=== PATIENT | male | born 1955 | race Caucasian/White ===

== ENCOUNTER 2017-09-17 12:24 | Emergency (ER) | payer BC, OTHER ==
[~2017-09-17] VITALS: Ht 190.5 cm; Wt 107.4 kg
[~2017-09-17 12:24] MED LIST: ALTACE; ATOR-26 PO; CLOP1TAB15; EFF50 PO; EZET10TA63; PRED50TA PO; TOPROL
[2017-09-17 12:27] VITALS: TEMP 36.7; Ht 190.5 cm; Wt 107.4 kg
--- NOTE | 2017-09-17 12:55 | EMERGENCY ROOM VISIT NOTE ---
History Report prepared by Bipin: Inge Sahu Under the Supervision of: Dr. Magdi Chanel M.D. First contact with patient: 12:35 Chief Complaint: DIZZY Stated Complaint: LIGHTHEADED, DIZZY, CLAMY HANDS Nursing Triage Summary: DIZZY ON OFF SINCE YESTERDAY. NO C/O PAIN History of Present Illness The patient is a 62 year old white male with a past medical history of diabetes type and heart disease who presents to the ED with a cc of dizziness beginning a couple of days [employer]. Negative chest pain, SOB, urinary symptoms, racing heart, or palpitations, recent antibiotic use. He states that a couple of nights ago, he got off of his sofa and thought he was going to fall because he was so lightheaded. He reports that yesterday his hands became clammy and cold. He states the last time he checked his sugar was in 2011, but he checked it yesterday and it was 71 which is abnormally low for him. The patient then had apple juice and peanut butter and a few minutes later, he was feeling better and his sugar was at 127. He takes baby aspirin regularly. Source of History: patient Onset: a couple of days [employer] Position: head, other (upper and lower extremities) Quality: other (dizziness) Timing: other (sudden) Associated Symptoms: No chest pain, No SOB, No urinary symptoms Review of Systems See HPI for pertinent positives and negatives. A total of ten systems were reviewed and were otherwise negative. Past Medical & Surgical Medical Problems: (1) Diabetes mellitus (2) Heart disease Family History Heart disease High blood pressure Social History Smoking Status: Never Smoker Smokeless Tobacco Use: Yes Alcohol Use: none Marital Status: Housing Status: lives with significant other Occupation Status: retired Current/Historical Medications Scheduled Aspirin (Aspirin Ec), 81 MG PO DAILY Atorvastatin (Lipitor), 80 MG PO DAILY Gabapentin (Neurontin), 300 MG PO HS Metformin Hcl (Glucophage), 1,000 MG PO BID Metoprolol Tartrate (Lopressor) (Lopressor), 25 MG PO BID Ramipril (Altace), 5 MG PO DAILY Allergies Coded Allergies: No Known Allergies (Unverified , 09/17/17) Physical Exam Vital Signs Date Time Temp Pulse Resp B/P (MAP) Pulse Ox O2 Delivery O2 Flow Rate FiO2 09/17/17 14:53 66 16 133/78 95 09/17/17 13:32 69 16 140/82 97 Room Air 09/17/17 13:25 97 Room Air 09/17/17 13:24 97 Room Air 09/17/17 13:22 69 18 140/82 97 72 154/88 79 160/89 09/17/17 13:06 75 09/17/17 12:27 36.7 84 18 102/63 93 Room Air Physical Exam GENERAL: Awake, alert, well-appearing, NAD. Bronzed appearance, wearing glasses. HENT: Normocephalic, atraumatic. EYES: Normal conjunctiva. Sclera non-icteric. PERRL. No anisocoria. NECK: Supple. No nuchal rigidity. FROM. No carotid bruits. RESPIRATORY: CTAB, no rhonchi, wheezing, crackles CARDIAC: RRR, no MRG ABDOMEN: Soft, NTND, BS+ MSK: No chest wall TTP, no LE edema NEURO: GCS 15, CN 2-12 intact, moves all 4s on command SKIN: No rash or jaundice noted. Medical Decision & Procedures Laboratory Results 09/17/17 13:15 Red Blood Count 5.68, Mean Corpuscular Volume 84.7, Mean Corpuscular Hemoglobin 29.9, Mean Corpuscular Hemoglobin Concent 35.3, Mean Platelet Volume 11.5, Neutrophils (%) (Auto) 69.7, Lymphocytes (%) (Auto) 21.1, Monocytes (%) (Auto) 6.7, Eosinophils (%) (Auto) 1.9, Basophils (%) (Auto) 0.2, Neutrophils # (Auto) 7.70, Lymphocytes # (Auto) 2.33, Monocytes # (Auto) 0.74, Eosinophils # (Auto) 0.21, Basophils # (Auto) 0.02 09/17/17 13:15 Test 09/17/17 13:15 09/17/17 13:25 White Blood Count 11.04 K/uL (4.8-10.8) Red Blood Count 5.68 M/uL (4.7-6.1) Hemoglobin 17.0 g/dL (14.0-18.0) Hematocrit 48.1 % (42-52) Mean Corpuscular Volume 84.7 fL (80-100) Mean Corpuscular Hemoglobin 29.9 pg (25-34) Mean Corpuscular Hemoglobin Concent 35.3 g/dl (32-36) Platelet Count 214 K/uL (130-400) Mean Platelet Volume 11.5 fL (7.4-10.4) Neutrophils (%) (Auto) 69.7 % Lymphocytes (%) (Auto) 21.1 % Monocytes (%) (Auto) 6.7 % Eosinophils (%) (Auto) 1.9 % Basophils (%) (Auto) 0.2 % Neutrophils # (Auto) 7.70 K/uL (1.4-6.5) Lymphocytes # (Auto) 2.33 K/uL (1.2-3.4) Monocytes # (Auto) 0.74 K/uL (0.11-0.59) Eosinophils # (Auto) 0.21 K/uL (0-0.5) Basophils # (Auto) 0.02 K/uL (0-0.2) RDW Standard Deviation 40.6 fL (36.4-46.3) RDW Coefficient of Variation 13.2 % (11.5-14.5) Immature Granulocyte % (Auto) 0.4 % Immature Granulocyte # (Auto) 0.04 K/uL (0.00-0.02) Anion Gap 9.0 mmol/L (3-11) Est Creatinine Clear Calc Drug Dose 82.1 ml/min Estimated GFR () 72.7 Estimated GFR (Non- 62.7 BUN/Creatinine Ratio 13.8 (10-20) Calcium Level 9.3 mg/dl (8.5-10.1) Magnesium Level 2.1 mg/dl (1.8-2.4) Total Bilirubin 0.7 mg/dl (0.2-1) Direct Bilirubin 0.2 mg/dl (0-0.2) Aspartate Amino Transf (AST/SGOT) 18 U/L (15-37) Alanine Aminotransferase (ALT/SGPT) 41 U/L (12-78) Alkaline Phosphatase 63 U/L (45-117) Total Protein 7.5 gm/dl (6.4-8.2) Albumin 3.8 gm/dl (3.4-5.0) Thyroid Stimulating Hormone (TSH) 1.880 uIu/ml (0.300-4.500) Urine Color YELLOW Urine Appearance CLEAR (CLEAR) Urine pH 5.0 (4.5-7.5) Urine Specific [place] 1.016 (1.000-1.030) Urine Protein NEG (NEG) Urine Glucose (UA) NEG (NEG) Urine Ketones NEG (NEG) Urine Occult Blood TRACE (NEG) Urine Nitrite NEG (NEG) Urine Bilirubin NEG (NEG) Urine Urobilinogen NEG (NEG) Urine Leukocyte Esterase NEG (NEG) Urine WBC (Auto) 1-5 /hpf (0-5) Urine RBC (Auto) 0-4 /hpf (0-4) Urine Hyaline Casts (Auto) 0 /lpf (0-5) Urine Epithelial Cells (Auto) 0-5 /lpf (0-5) Urine Bacteria (Auto) NEG (NEG) Laboratory results reviewed by me Medications Administered Medications (Trade) Dose Ordered Sig/Darion Route Start Time Stop Time Status Last Admin Dose Admin Sodium Chloride 500 ml @ 999 mls/hr Q31M STAT IV 09/17/17 12:57 09/17/17 13:27 DC 09/17/17 13:45 999 MLS/HR ECG Per My Interpretation Indication: other (dizziness) Rate (beats per minute): 69 Rhythm: normal sinus Findings: no ectopy, other (normal intervals, normal axis, no STS changes or TWI) ED Course 1246: The patient was evaluated in room B11. A complete history and physical exam was performed. 1408: I reevaluated the patient. Discussed results and discharge instructions: He verbalized understanding and agreement. The patient is ready for discharge. Medical Decision The patient is a 62 year old white male with a past medical history of diabetes type and heart disease who presents to the ED with a cc of dizziness beginning a couple of days [employer]. Negative chest pain, SOB, urinary symptoms, racing heart, or palpitations, recent antibiotic use. Nursing notes reviewed. Ancillary studies and prior records reviewed. Differential diagnosis: Etiologies such as metabolic, infection, hypo/hyperglycemia, electrolyte abnormalities, cardiac sources, intracerebral event, toxicologic, neurologic, as well as others were entertained. Patient was seen and evaluated the bedside. Patient does have a known history of diabetes on metformin and CAD status post stent on baby aspirin. The patient does state that he has had some lightheadedness. Patient does relate that they are positional nature. Patient also did note some clamminess to his hands. Patient denies any chest pain, shortness of breath, or focal neuro deficit. Patient also did note some episodes of near hypoglycemia as the patient had a blood sugar in the 70s. Patient did recheck it after eating and it was greater than 100. Patient has had no recent changes in medications. Patient does not use any sulfonylureas or insulin. Patient did have blood work completed, EKG, troponin, chest x-ray. Patient's EKG is nonischemic and with a negative troponin. Do not believe this is ACS. The patient had fairly normal blood work otherwise. Patient's blood sugars normal here today. The patient is feeling improved. I did discuss that the patient does not have any murmurs or any carotid bruits. We did discuss that this could be contributory with regard to some lightheadedness. Patient was also told that he needs to hydrate better with clear liquids. Patient was also told he needs to be more careful with positional changes. Patient was told to follow-up with his PCP. I did discuss the patient with the special education case manager in order to obtain the patient a cardiology follow-up as he has not been seen by instrument technician in over 5 years. Patient again has a nonfocal neurologic exam do not believe he needs a CT the brain. With his lack of chest pain or shortness of breath I do not believe this to be PE. Patient was given strict follow-up, discharge, and return precautions. All questions were answered. Patient was deemed suitable for outpatient follow-up at this time. Patient agreed with the plan of care and was safely discharged home. Medication Reconcilliation Current Medication List: was personally reviewed by me Blood Pressure Screening Patient's blood pressure: Normal blood pressure Blood pressure disposition: Did not require urgent referral Impression Primary Impression: Dizziness Scribe Attestation The scribe's documentation has been prepared under my direction and personally reviewed by me in its entirety. I confirm that the note above accurately reflects all work, treatment, procedures, and medical decision making performed by me. Departure Information Dispostion Home / Self-Care Forms HOME CARE DOCUMENTATION FORM, IMPORTANT VISIT INFORMATION Patient Instructions ED Dizziness KASSIE, Marbella [facility] Additional Instructions Please return to the emergency department if you have worsening or recurrent symptoms not amenable to at-home treatment. Please call for a follow-up appointment with her primary care physician. Please take your medications as prescribed. If you have other concerns and/or complaints please feel free to also call your primary care physician's office or return the ED for further evaluation, management, and treatment. Please make sure to hydrate liberally with clear liquids. Please avoid alcohol. Please consider limiting her sun exposure. Please follow-up with the instrument technician as discussed with the special education case manager. Take your medications as prescribed. Consider discussing your diabetes medications with your primary care physician. You have been examined and treated today on an emergency basis only. This is not a substitute for, or an effort to provide, complete comprehensive medical care. It is impossible to recognize and treat all injuries or illnesses in a single emergency department visit. It is therefore important that you follow up closely with [facility], your PCP, and/or your specialist(s). Call as soon as possible for an appointment. Thank you for your time and consideration. I look forward to speaking with you again soon. Please don't hesitate to call us if you have any questions.
[2017-09-17] MEDS ORDERED: SODIUM CHLORIDE 0.9% 500ML 500 ML IV STA (12:57)
[2017-09-17] MEDS ORDERED: GABA-113 PO (13:13)
[2017-09-17] MEDS ORDERED: METF-384 PO (13:13)
[2017-09-17] MEDS ORDERED: ATOR-26 PO (13:13)
[2017-09-17] MEDS ORDERED: METO25TA56 PO (13:13)
[2017-09-17] MEDS ORDERED: ASPI81TA28 PO (13:13)
[2017-09-17] MEDS ORDERED: RAMI5CAP32 PO (13:13)
[2017-09-17 13:25] VITALS: O2SAT 97
[2017-09-17 13:26] LABS: BASO % 0.2 %; BASO ABS # 0.02 K/uL (0-0.2); EOS % 1.9 %; EOS ABS # 0.21 K/uL (0-0.5); HEMATOCRIT 48.1 % (42-52); IG# 0.04 K/uL (0.00-0.02); LYMPH % 21.1 %; LYMPH ABS # 2.33 K/uL (1.2-3.4); MEAN CELL VOLUME 84.7 fL (80-100); MEAN CORPUSCULAR HEMOGLOBIN 29.9 pg (25-34); MEAN CORPUSCULAR HGB CONC 35.3 g/dl (32-36); MEAN PLATELET VOLUME 11.5 fL (7.4-10.4); MONO % 6.7 %; MONO ABS # 0.74 K/uL (0.11-0.59); NEUT % 69.7 %; PLATELET COUNT 214 K/uL (130-400); RED CELL DISTRIBUTION WIDTH CV 13.2 % (11.5-14.5); RED CELL DISTRIBUTION WIDTH SD 40.6 fL (36.4-46.3); WHITE BLOOD COUNT 11.04 K/uL (4.8-10.8)
[2017-09-17 13:58] LABS: ALBUMIN 3.8 gm/dl (3.4-5.0); CALCIUM 9.3 mg/dl (8.5-10.1); CREATININE 1.22 mg/dl (0.60-1.40); POTASSIUM 4.4 mmol/L (3.5-5.1); TOTAL PROTEIN 7.5 gm/dl (6.4-8.2)
[2017-09-17 14:53] VITALS: BP 133/78; PULSE 66; O2SAT 95
== END 2017-09-17 14:40 | disposition home or self-care (01) ==
LOC: C.EDB 12:26
DX: R42 Dizziness and giddiness (principal); E11.9 Type 2 diabetes mellitus without complications; Z82.49 Family history of ischemic heart disease and other diseases of the circulatory system; Z79.84 Long term (current) use of oral hypoglycemic drugs; Z79.82 Long term (current) use of aspirin; Z79.899 Other long term (current) drug therapy; I25.10 Atherosclerotic heart disease of native coronary artery without angina pectoris; Z95.5 Presence of coronary angioplasty implant and graft